=== PATIENT | female | born 1955 | race Caucasian/White ===

== ENCOUNTER 2022-12-15 11:40 | Day surgery (SDC) | payer MEDICARE ==
[2022-12-15] MEDS ORDERED: Lactated Ringers 1,000 ML IV SCH (12:00)
[2022-12-15] MEDS ORDERED: Lactated Ringers 1,000 ML IV ONE (12:05)
[2022-12-15] MEDS ORDERED: Xylocaine-Mpf 2% 5 Ml Vial ONE (14:42)
[2022-12-15] MEDS ORDERED: DIPRIVAN 200 MG/20 ML IV ONE ×2 (14:42→15:04)
[2022-12-15] MEDS ORDERED: ROBINUL ONE (14:58)
--- NOTE | 2022-12-15 15:43 | OP ---
PROCEDURE DATE/TIME: 12/15/2022 1444 PREOPERATIVE DIAGNOSIS: Screening. POSTOPERATIVE DIAGNOSES: 1) Multiple small benign appearing colon polyps. 2) Mild diverticulosis. 3) Internal and external moderate hemorrhoid disease. 4) Three small benign appearing anal tags. PROCEDURE: Colonoscopy with cold forceps polypectomy x4. PROCEDURE PERFORMED BY: Tawny Herrera M.D. COMPLICATIONS: None. ESTIMATED BLOOD LOSS: Minimal. ANESTHESIA: MAC. SPECIMEN: Sigmoid polyps. HISTORY: This is a 67 -year-old female who presents for colonoscopy. Risks, benefits, alternatives have been discussed with her. Her H&P and consent have been rereviewed and completed with her. All questions have been answered. She would like to proceed. DESCRIPTION OF PROCEDURE: She was brought to the endoscopy suite and laid in left lateral decubitus position. A complete time out was performed. First a rectal exam was done and a rectal inspection. She does have internal and external hemorrhoid disease with three very small benign appearing tags this was reverified with insertion of the colonoscope and with withdrawal clearly benign disease. Moderate hemorrhoid disease. Nothing actively bleeding. The scope was able to be gently advanced to the level of the cecum. The appendiceal orifice and ileocecal valve were visualized and these were normal. The scope was then carefully withdrawn taking a circumferential view. The prep was fair but satisfactory. She did have some staining. I was able to irrigate the majority off and saw approximately 90% of the mucosa. She did also have some angulation with some tortuosity at the region of the hepatic flexure as well. As we carefully withdrew the scope, we saw four very small 1 to 2 mm polyps in the sigmoid colon. These appear likely hyperplastic. These were all taken with cold forceps and sent to pathology. All sites looked hemostatic. The scope was then withdrawn into the level of the rectum and full inspection done and then removed. There were no other findings except those described. The remainder of the mucosa looked healthy and diverticulosis was mild and mainly limited to the sigmoid colon. PLAN: The patient has a history of polyps. Prep fair. Four small polyps identified, angulated and slightly tortuous colon. Plan will be clinically to repeat the scope in approximately five years.
[2022-12-15 16:02] VITALS: PULSE 55
[2022-12-15 16:33] VITALS: BP 169/94; O2SAT 96
== END 2022-12-15 16:40 | disposition home or self-care (01) ==
LOC: SDC 11:40
PROVIDERS: ATTEND Surgery
DX: Z12.11 Encounter for screening for malignant neoplasm of colon (principal); K63.5 Polyp of colon; K57.30 Diverticulosis of large intestine without perforation or abscess without bleeding; K64.4 Residual hemorrhoidal skin tags; K64.8 Other hemorrhoids
CPT/HCPCS: J2704

== ENCOUNTER 2023-06-24 02:19 | Emergency (ER) | payer MEDICARE ==
--- NOTE | 2023-06-24 03:12 | XRAY ---
CLINICAL HISTORY:cough COMPARISON:Dated: 11/21/2015 TECHNIQUE:X-ray of the chest 1 view, AP portable. FINDINGS: Prominent bronchovascular markings with marlo-bronchovascular thickening suggestive of bronchitis. No focal consolidation or collapse. Normal cardiac shadow. Clear costophrenic angles. Bilateral small nodules are redemonstrated, may be calcified. IMPRESSION: 1. Prominent bronchovascular markings with marlo-bronchovascular thickening suggestive of bronchitis, new interval finding. 2. Follow up is advised. Electronically Signed by: Bruce Paniagua MD. (06/24/2023 03:07:38 EST)
[2023-06-24 03:20] LABS: INFLUENZA A NEGATIVE (NEGATIVE); INFLUENZA B NEGATIVE (NEGATIVE); RESPIRATORY SYNCTIAL VIRUS NEGATIVE (NEGATIVE); SARS-CoV-2 Xpert Express NEGATIVE (NEGATIVE)
--- NOTE | 2023-06-24 03:22 | ERPHSYRPT ---
- History of Present Illness Time Seen by Provider: 06/24/23 02:30 Source: patient Exam Limitations: no limitations Patient Subjective Stated Complaint: +covid 3 weeks ago, cough x 3 weeks, sore throat, body aches, tender scalp, chills, hot flashes, frequent urination, short of breath, thick mucous Triage Nursing Assessment: Patient presents with a cough that started 3 weeks ago from testing positive from covid. Patient states having a sore throat, body aches, tender scalp, chills, hot flashes, frequent urination, short of breath, thick mucous now for last 3 weeks and feels like the cough is getting worse now. Physician History: Patient is a 67-year-old female presents to the emergency department for evaluation of fever and a cough. Patient reports her symptoms have been ongoing for approximately 3 weeks. Cough started 3 weeks ago after she was diagnosed with COVID. Patient is coughing frequently. Patient states her throat is sore due to the cough. No associated chest pain or shortness of breath. No nausea vomiting or diaphoresis. Patient is also experiencing bodyaches. No rash. Patient otherwise feels well. at bedside. They voiced no other complaints or concerns at this time. Portions of this note were created with voice recognition technology. There may be grammatical, spelling, punctuation or sound alike errors Timing/Duration: week(s) (3 weeks) Severity: moderate Modifying Factors: Improves With: nothing Associated Symptoms: denies symptoms Allergies/Adverse Reactions: Penicillins Allergy (Verified 06/24/23 02:26) itching and flushing Home Medications: Amlodipine Besylate 5 mg [Norvasc 5 mg] 5 mg PO DAILY 11/20/15 [History] Levothyroxine Sodium 100 Mcg [Synthroid 100 Mcg] 100 mcg PO DAILY 11/20/15 [History] Melatonin 10 mg PO HS 11/18/22 [History] Atorvastatin Calcium [Lipitor 40Mg] 40 mg PO DAILY 06/24/23 [History] Hx Tetanus, Diphtheria Vaccination/Date Given: No Hx Influenza Vaccination/Date Given: Yes Hx Pneumococcal Vaccination/Date Given: No Immunizations Up to Date: Yes Travel Risk - International Travel Have you traveled outside of the country in past 3 weeks: No - Coronavirus Screening Are you exhibiting any of the following symptoms?: Yes Symptoms: Fever, Cough: New Onset, Shortness of Breath, Headaches/Body Aches/Fatigue Close contact with a COVID-19 positive Pt in past 14-21 Days: Yes - Vaccine Status Have you recieved a Covid-19 vaccination: Yes Public Health Advisor: Moderna - Vaccination Dates Date of 2cond Vaccination (if applicable): 09/27/20 - Review of Systems Constitutional: No Symptoms, No Fever, No Chills Eyes: No Symptoms Ears, Nose, & Throat: No Symptoms Respiratory: No Symptoms, No Cough, No Dyspnea Cardiac: No Symptoms, No Chest Pain, No Edema, No Syncope Abdominal/Gastrointestinal: No Symptoms, No Abdominal Pain, No Nausea, No Vomiting, No Diarrhea Genitourinary Symptoms: No Symptoms, No Dysuria Musculoskeletal: No Symptoms, No Back Pain, No Neck Pain Skin: No Symptoms, No Rash Neurological: No Symptoms, No Dizziness, No Focal Weakness, No Sensory Changes Psychological: No Symptoms Endocrine: No Symptoms Hematologic/Lymphatic: No Symptoms Immunological/Allergic: No Symptoms All Other Systems: Reviewed and Negative - Past Medical History Pertinent Past Medical History: Yes Neurological History: Migraines ENT History: Cataracts Cardiac History: Congestive Heart Failure, High Cholesterol, Hypertension Respiratory History: No Pertinent History Endocrine Medical History: Hypothyroidism Musculoskeletal History: Arthritis, Fractures GI Medical History: Hemorrhoids History: No Pertinent History Psycho-Social History: No Pertinent History Female Reproductive Disorders: No Pertinent History Other Medical History: left arm fracture - Past Surgical History Past Surgical History: Yes Neuro Surgical History: No Pertinent History Cardiac: No Pertinent History Respiratory: No Pertinent History Gastrointestinal: No Pertinent History Genitourinary: No Pertinent History Musculoskeletal: Orthopedic Surgery Female Surgical History: No Pertinent History Other Surgical History: fx left arm - Social History Smoking Status: Current every day smoker Exposure to second hand smoke: Yes Drug Use: none Patient Lives Alone: No (lives with spouse) - Nursing Vital Signs Nursing Vital Signs: Initial Vital Signs Temperature 101.1 F 06/24/23 02:19 Pulse Rate 92 H 06/24/23 02:19 Respiratory Rate 18 06/24/23 02:19 Blood Pressure 145/70 06/24/23 02:19 O2 Sat by Pulse Oximetry 92 L 06/24/23 02:19 Pain Scale Pain Intensity 6 - Physical Exam General Appearance: no apparent distress, alert Eye Exam: PERRL/EOMI, eyes nml inspection Ears, Nose, Throat Exam: normal ENT inspection, TMs normal, pharynx normal, moist mucous membranes Neck Exam: normal inspection, non-tender, supple, full range of motion Respiratory Exam: normal breath sounds, diminished breath sounds, other (Slightly coarse breath sounds bilaterally), No respiratory distress Cardiovascular Exam: regular rate/rhythm, normal heart sounds, normal peripheral pulses Gastrointestinal/Abdomen Exam: soft, normal bowel sounds, No tenderness, No mass Back Exam: normal inspection, normal range of motion, No CVA tenderness, No vertebral tenderness Extremity Exam: normal inspection, normal range of motion, pelvis stable Neurologic Exam: alert, oriented x 3, cooperative, normal mood/affect, nml cerebellar function, nml station & gait, sensation nml, No motor deficits Skin Exam: normal color, warm, dry, No rash Lymphatic Exam: inguinal node tender (L), No adenopathy SpO2 Interpretation: normal SpO2: 94 O2 Delivery: Room Air - Course Nursing assessment & vital signs reviewed: Yes Ordered Tests: Active Orders 24 hr Category Date Time Status CHEST 1 VIEW (PORTABLE) Stat Exams 06/24/23 02:31 Completed CULTURE,URINE Stat Lab 06/24/23 04:09 Received UA W/RFX UR CULTURE Stat Lab 06/24/23 04:09 Completed Respiratory Therapy Assessment DAILY RT 06/24/23 03:35 Active Medication Summary Discontinued Medications Generic Name Dose Route Start Last Admin Trade Name Cari PRN Reason Stop Dose Admin Acetaminophen 975 mg 06/24/23 03:39 06/24/23 03:54 Acetaminophen 325 Mg Tablet PO 06/24/23 03:40 975 mg STAT ONE Administration Acetaminophen Confirm 06/24/23 03:53 Acetaminophen 325 Mg Tablet Administered 06/24/23 03:54 Dose 975 mg .ROUTE .STK-MED ONE Albuterol/Ipratropium 3 ml 06/24/23 03:27 06/24/23 03:32 Ipratropium/Albuterol Sulfate 3 Ml Ampul.Neb IH 06/24/23 03:28 3 ml STAT ONE Administration Albuterol/Ipratropium Confirm 06/24/23 03:31 Ipratropium/Albuterol Sulfate 3 Ml Ampul.Neb Administered 06/24/23 03:32 Dose 3 ml IH .STK-MED ONE Prednisone 60 mg 06/24/23 03:26 06/24/23 03:29 Prednisone 20 Mg Tablet PO 06/24/23 03:27 60 mg STAT ONE Administration Prednisone Confirm 06/24/23 03:28 Prednisone 20 Mg Tablet Administered 06/24/23 03:29 Dose 20 mg .ROUTE .STK-MED ONE Prednisone Confirm 06/24/23 03:29 Prednisone 20 Mg Tablet Administered 06/24/23 03:30 Dose 40 mg .ROUTE .STK-MED ONE Lab/Rad Data: Laboratory Results 06/24/23 06/24/23 Range/Units 04:09 02:42 Urine Color Yellow (Yellow) Urine Appearance Clear (Clear) Urine pH 8.0 (4.6-8.0) Ur Specific [place] 1.015 (1.005-1.030) Urine Protein Negative (Negative) Urine Glucose (UA) Negative (Negative) mg/dL Urine Ketones Trace A (Negative) Urine Blood Negative (Negative) Urine Nitrite Negative (Negative) Urine Bilirubin Negative (Negative) Urine Urobilinogen 1.0 A (0.2) mg/dL Ur Leukocyte Esterase Moderate A (Negative) U Hyaline Cast (Auto) NONE SEEN (0-2) /LPF Urine Microscopic RBC 3-5 (0-5) /HPF Urine Microscopic WBC 11-20 A (0-5) /HPF Ur Epithelial Cells None Seen (None Seen) /HPF Urine Bacteria None Seen (None Seen) /HPF Urine Culture Reflexed YES (NO) Influenza Type A Ag NEGATIVE (NEGATIVE) Influenza Type B Ag NEGATIVE (NEGATIVE) RSV (PCR) NEGATIVE (NEGATIVE) SARS-CoV-2 (PCR) NEGATIVE (NEGATIVE) - Progress Progress: improved Progress Note: Patient is a 67-year-old female presents to the emergency department for evaluation of a cough x 3 weeks. Mild sore throat. Fever as well. Physical exam reveals diminished of the coarse breath sounds. COVID RSV influenza negative. Chest x-ray shows lung nodules and bronchitis. Patient received a dose of prednisone 60 mg in our ED. A albuterol nebulizer treatment administered. A prescription for a Z-Edgardo albuterol inhaler and prednisone forwarded to patient's pharmacy. Due to patient fever in our ED Tylenol administered. Patient reassessed. She feels much better. Patient providing a urine sample at this time. Results pending. Patient be discharged home. She agrees to follow-up with her primary care doctor within 48 hours for reevaluation. Portions of this note were created with voice recognition technology. There may be grammatical, spelling, punctuation or sound alike errors Complexity of problem addressed is moderate acute complicated Complex of data reviewed and analyzed is moderate. Test ordered test reviewed. Results analyzed and correlated clinically with history and physical exam. Risk of complication and or risk of morbidity/mortality of patient management is moderate. Prescription for Z-Edgardo albuterol inhaler and prednisone forwarded to patient's pharmacy. Will discharge patient home. Patient agrees to follow-up with primary care doctor within 48 hours for reevaluation. Vital stable. Time spent to discharge patient is approximately 15 minutes. Plan of care established for shared decision making. No social determinants of health present impede follow-up. 06/24/23 03:39 UA reveals urinary tract infection. Azithromycin changed to Levaquin instead. Levaquin will cover both UTI and bronchitis 06/24/23 04:47 Counseled pt/family regarding: lab results, diagnosis, need for follow-up, rad r esults - Departure Departure Disposition: Home Clinical Impression: Cough, Bronchitis, Fever, Lung nodule, UTI (urinary tract infection) Condition: Stable Critical Care Time: No Referrals: CHIQUI NGUYEN MD [Primary Care Provider] - Follow up/PCP as directed Additional Instructions: Discharge/Care Plan KALPESH HUMPHREY was seen on 06/24/23 in the Emergency Room. The patient was counseled regarding Diagnosis,Lab results, Imaging studies, need for follow up and when to return to the Emergency Room. Prescriptions given: Discharge Note I have spoken with the patient and/or caregivers. I have explained the patient's condition, diagnosis and treatment plan based on the information available to me at this time. I have answered the patient's and/or caregiver's questions and addressed any concerns. The patient and/or caregivers have as good understanding of the patient's diagnosis, condition and treatment plan as can be expected at this point. The vital signs have been stable. The patient's condition is stable and appropriate for discharge from the emergency department. The patient will pursue further outpatient evaluation with the primary care physician or other designated or consulting physician as outlined in the discharge instructions. The patient and/or caregivers are agreeable to this plan of care and follow-up instructions have been explained in detail. The patient and/or caregivers have received these instruction. The patient/and or caregivers are aware that any significant change in condition or worsening of symptoms should prompt an immediate return to this or the closest emergency department or call 911. Prescriptions: Prednisone 10 mg [Deltasone 10 mg] 40 mg PO DAILY 3 Days #12 tablet Levofloxacin [Levaquin 500 MG Tablet] 500 mg PO DAILY 7 Days #7 tablet Albuterol 8 gm Mdi Hfa [Ventolin Hfa MDI] 8 gm IH Q4H 7 Days #1 inhaler
[2023-06-24] MEDS ORDERED: DELTASONE 20 MG PO ONE (03:26)
[2023-06-24] MEDS ORDERED: DUONEB 0.5-3 MG/3 ml Neb IH ONE ×2 (03:27→03:31)
[2023-06-24] MEDS ORDERED: DELTASONE 20 MG ONE ×2 (03:28→03:29)
[2023-06-24] MEDS ORDERED: TYLENOL 325 MG PO ONE (03:39)
[2023-06-24] MEDS ORDERED: TYLENOL 325 MG ONE (03:53)
[2023-06-24 04:18] LABS: Appearance Clear (Clear); Bacteria None Seen /HPF (None Seen); Bilirubin Negative (Negative); Blood Negative (Negative); Epithelial Cells None Seen /HPF (None Seen); Glucose, Urine Negative (Negative); Hyaline Casts NONE SEEN /LPF (0-2); Ketones Trace (Negative); Leukocyte Esterase Moderate (Negative); Nitrite Negative (Negative); Protein,Urine Dip Negative (Negative); Specific Gravity 1.015 (1.005-1.030)
[2023-06-24 04:31] LABS: ADD URINE CULTURE? YES (NO)
[2023-06-24 04:33] VITALS: RESP 20
[2023-06-24 05:04] VITALS: BP 123/64; PULSE 94; TEMP 102.5; O2SAT 90
== END 2023-06-24 05:02 | disposition home or self-care (01) ==
LOC: ED 02:19
DX: R05.3 Chronic cough (principal); J40 Bronchitis, not specified as acute or chronic; R50.9 Fever, unspecified; R91.1 Solitary pulmonary nodule; N39.0 Urinary tract infection, site not specified; M79.10 Myalgia, unspecified site; E78.5 Hyperlipidemia, unspecified; I11.0 Hypertensive heart disease with heart failure; I50.9 Heart failure, unspecified; Z79.52 Long term (current) use of systemic steroids; Z79.899 Other long term (current) drug therapy; Z72.0 Tobacco use
CPT/HCPCS: 0241U; 71045; 81001; 87086; 94640; 99283; A9270-GY